=== PATIENT | female | born 1960 | race Caucasian/White ===

== ENCOUNTER 2016-11-20 10:00 | Inpatient (IN) | payer BC ==
--- NOTE | 2016-12-18 14:23 | HP ---
Admitting History and Physical - Primary Care Physician PCP: Lawrence Luciano - Admission Chief Complaint: left breast cancer History of Present Illness: 56 yo female noted to have left breast asymmetric density in the superior lateral aspect of the left breast that partially effaced on diagnostic views. Left US was c/w 4mm mass at 12 6 cm FN which was not suspicious. MRI was recommended and an area of enhancement was noted at 2 ooclock. Patient underwent an MRI guided core bx which was positive for invasive lobular carcinoma ER/MA positive Her 2 negative. Patient also underwent MRI guided core bxs of left 12 oclock which was positive for atypia and right 9 oclock which was positive for intraductal papilloma. Patient is now presenting for bilateral mastectomy, left snbx, possible andx with lymphoscintogram and bilateral GEOFFREY reconstruction. History Source: Patient - Past Medical History Gastrointestinal: Yes: GERD - Past Surgical History Additional Past Surgical History: pilonidal cyst exc 1975 - Smoking History Smoking history: Former smoker (quit 1999) Have you smoked in the past 12 months: No - Alcohol/Substance Use Hx Alcohol Use: No Home Medications - Allergies Allergies/Adverse Reactions: Allergies Allergy/AdvReac Type Severity Reaction Status Date / Time No Known Allergies Allergy Verified 10/17/16 10:02 - Home Medications Home Medications (free text): pantoprazole Family Disease History - Family Disease History Family Disease History: CA: Sister (Breast ca 55 triple neg alive 60) Other Family History: maternal cousin-breast cancer Review of Systems - Review of Systems Constitutional: reports: No Symptoms Cardiovascular: reports: No Symptoms Respiratory: reports: No Symptoms Physical Examination Constitutional: Yes: Well Nourished Cardiovascular: Yes: WNL, Regular Rate and Rhythm Respiratory: Yes: WNL, Regular Breast(s): Yes: Other (bilateral breast without skin changes noted. No nipple discharge or retraction noted. No suspicious palpable masses or adenopathy noted bilaterally.) Problem List - Problems (1) Breast cancer, left Code(s): C50.912 - MALIGNANT NEOPLASM OF UNSPECIFIED SITE OF LEFT FEMALE BREAST Qualifiers: Breast location: upper outer quadrant of breast Patient sex: female (2) Atypical lobular hyperplasia of left breast Code(s): N60.92 - UNSPECIFIED BENIGN MAMMARY DYSPLASIA OF LEFT BREAST (3) Intraductal papilloma of right breast Code(s): D24.1 - BENIGN NEOPLASM OF RIGHT BREAST Assessment/Plan Bilateral mastectomy, with left lymphoscintogram, left snbx, possible axillary node dissection, bilateral GEOFFREY reconstruction
--- NOTE | 2016-12-24 09:03 | HP ---
History & Physical Update - History History: No Change - Physical Physical: No Change - Assessment Assessment: No Change - Plan Currently as noted:: Left mastectomy, sentinel node biospsy, possible axillary node dissection
[2016-12-28 12:07] VITALS: BMI 32.2
[2017-01-02] MEDS ORDERED: PROMETHAZINE HCL 25 MG/1 ML VIAL IVPB PRN (06:58)
[2017-01-02] MEDS ORDERED: ONDANSETRON 4 MG/2 ML VIAL IVPUSH PRN ×3 (06:58→15:49)
[2017-01-02] MEDS ORDERED: PROMETHAZINE HCL 25 MG/1 ML VIAL IVPUSH PRN (06:58)
[2017-01-02] MEDS ORDERED: LACTATED RINGERS SOLUTION 1,000 ML IV SCH (07:00)
[2017-01-02] MEDS ORDERED: HYDROmorphone *PCA* 10MG/50ML DISP.SYRIN PCA SCH (07:00)
[2017-01-02] MEDS ORDERED: ACETAMINOPHEN INJECTION 200 ML IVPB ONE (07:01)
[2017-01-02] MEDS ORDERED: LIDOCAINE HCL 1%, 10 MG/ML (20ML VIAL) ONE (07:03)
[2017-01-02] MEDS ORDERED: DESFLURANE GAS 240 ML BOTTLE IH ONE (07:03)
[2017-01-02] MEDS ORDERED: SCOPOLAMINE HYDROBROMIDE 1 PATCH PATCH.TD72 ONE (07:03)
[2017-01-02] MEDS ORDERED: ceFAZolin SODIUM 1 GM VIAL ONE ×3 (07:13→17:48)
[2017-01-02] MEDS ORDERED: ePHEDrine SULFATE 50 MG/1 ML AMPULE ONE (07:13)
[2017-01-02] MEDS ORDERED: DEXAMETHASONE SOD PHOSPHATE 4 MG/1 ML VIAL ONE (07:13)
[2017-01-02] MEDS ORDERED: LIDOCAINE HCL/PF 2% SDV 5ML VIAL ONE (07:13)
[2017-01-02] MEDS ORDERED: PROPOFOL 20 ML ONE ×2 (07:13)
[2017-01-02] MEDS ORDERED: HYDROmorphone HCL/PF 1 MG/ML VIAL (FOR PYXIS CHARGING ONLY) ONE (07:13)
[2017-01-02] MEDS ORDERED: PHENYLEPHRINE HCL 10 MG/1 ML SINGLE DOSE VIAL ONE (07:13)
[2017-01-02] MEDS ORDERED: ROCURONIUM BROMIDE 50 MG/5 ML VIAL ONE ×4 (07:14→13:38)
[2017-01-02] MEDS ORDERED: MIDAZOLAM HCL 2 MG/2 ML SINGLE DOSE VIAL ONE ×2 (07:14)
[2017-01-02] MEDS ORDERED: SUCCINYLCHOLINE CHLORIDE 200 MG/10 ML VIAL ONE (07:14)
[2017-01-02] MEDS ORDERED: SODIUM CHLORIDE 0.9% P/F 10 ML VIAL IJ ONE ×2 (07:17→07:19)
[2017-01-02] MEDS ORDERED: ISOSULFAN BLUE 10 MG/ML VIAL SQ ONE (07:18)
[2017-01-02] MEDS ORDERED: HEPARIN NA (PORCINE) 5,000 UNITS/ML 1ML VIAL ONE (07:18)
[2017-01-02] MEDS ORDERED: LIDOCAINE HCL 4% PRESERVE-FREE 5 ML AMP ONE (07:18)
[2017-01-02] MEDS ORDERED: ceFAZolin SODIUM 1 GM VIAL IVPB ONE ×2 (08:37→16:55)
[2017-01-02] MEDS ORDERED: LIDOCAINE 1%/EPI 1:100000 (50 ML MULTI DOSE VIAL) ONE ×2 (08:38→08:42)
[2017-01-02] MEDS ORDERED: BUPIVACAINE LIPOSOME/PF (EXPAREL) 266 MG/20 ML VIAL NR ONE (08:45)
[2017-01-02] MEDS ORDERED: HEPARIN NA (PORCINE) 5,000 UNITS/ML 1ML VIAL SQ ONE (09:04)
[2017-01-02] MEDS ORDERED: LIDOCAINE 1%/EPI 1:100000 (50 ML MULTI DOSE VIAL) INF ONE (09:15)
[2017-01-02] MEDS ORDERED: GLYCOPYRROLATE 0.2 MG/1 ML VIAL ONE ×2 (10:39→13:41)
[2017-01-02] MEDS ORDERED: NEOSTIGMINE METHYLSULFATE 0.5 MG/ML - 10 ML MDV ONE (13:38)
[2017-01-02] MEDS ORDERED: LIDOCAINE HCL 4% PRESERVE-FREE 5 ML AMP NR ONE (14:18)
[2017-01-02] MEDS ORDERED: METOCLOPRAMIDE HCL INJECTION 10 MG/2 ML VIAL IVPB PRN (15:49)
[2017-01-02] MEDS ORDERED: ZOLPIDEM TARTRATE 5 MG TABLET PO PRN (15:49)
[2017-01-02] MEDS ORDERED: PROCHLORPERAZINE MALEATE 25 MG SUPP.RECT PR PRN (15:49)
[2017-01-02] MEDS ORDERED: D5-1/2NS+10 MEQ KCL - 1,000 ML IV SCH (16:00)
--- NOTE | 2017-01-02 16:06 | OPR ---
DATE OF OPERATION: 01/02/17 ATTENDING SURGEON: Fausto Fernandes MD CO-SURGEON: Cesario Ramos MD MINIATURE MODEL MAKER: JIMMY Torres PREOPERATIVE DIAGNOSIS: left breast cancer POSTOPERATIVE DIAGNOSIS: same PROCEDURE PERFORMED: 1. Left breast reconstruction with GEOFFREY (deep inferior epigastric perforators) flap. 2. Left rib resection. 3. Bilateral ligation of SIEV (superficial inferior epigastric vein). 4. Left intercostal nerve block for postoperative pain relief. 5. Bilateral transversus abdominis plane block for postoperative pain relief. COMPLICATIONS: None. ESTIMATED BLOOD LOSS: 300 mL DESCRIPTION OF PROCEDURE: The patient was brought to the OR in conjunction with Mustapha , the breast surgeon. Please see her operative note for details of her portion of the procedure. A Left mastectomy and a left sentinel node dissection was performed by Mustapha . Simultaneously , Dr. Fernandes and Dr. Ramos initiated the breast reconstruction at the abdomen. At the abdomen the previously marked ellipse of tissue from just above the umbilicus down to the pubic hairline was incised using a 15 blade scalpel. Dissection was carried down through the subcutaneous tissues using electrocautery, beveling away from the flap in order to increase the volume of the flap. At the right side, 6 cm off the midline, the superficial inferior epigastric artery and vein were identified. They were meticulously freed of all surrounding tissue, and they were traced down to their origin in the groin where they were ligated and divided and kept in continuity with the flap in case they were needed later in the flap for additional inflow or outflow to the flap. At the left side, 6 cm off the midline the left superficial inferior epigastric artery and vein were identified. Using microsurgical technique, they were meticulously dissected down to their origin in the groin where they were ligated and divided. They were kept in continuity with the left GEOFFREY flap in case they were needed later in the case for additional inflow or outflow to the flap. Simultaneously, at the left chest, exposure of the internal mammary artery and vein was performed. The mastectomy pocket was thoroughly irrigated, all points of bleeding were stopped with electrocautery. The pectoralis major muscle was then divided in line with its longitudinal fibers overlying the third rib. Gelpi retractors were placed for exposure. The third rib was scored using electrocautery, and then, the perichondrium surrounding the cartilaginous portion of the third rib was elevated using a periosteal elevator. Then, 2 cm of cartilaginous portion of the rib were removed using a rongeur, and under loupe magnification, the posterior perichondrium was elevated using microsurgical technique and bipolar cautery. Meticulous dissection was performed, and the internal mammary artery and vein were identified. The internal mammary artery and vein were freed of all surrounding tissue for a total length of 2 cm in order to allow microsurgical anastomoses. At the left abdomen, the left GEOFFREY flap was elevated in a lateral to medial direction using electrocautery until the lateral edge of the rectus abdominis muscle was encountered. Then, dissection continued using bipolar cautery in a meticulous fashion using loupe magnification, and the two dominant perforators identified on the preoperative MRA were encountered and preserved. They were circumferentially freed. An incision was made in the anterior rectus fascia in a superior and inferior direction. A small cuff of fascia was kept adherent to the perforators, approximately 1 cm in size. The perforators were followed down into the rectus muscle freeing all small branches as necessary. The rectus muscle was atraumatically split using Gelpi retractors, and the perforators were traced down to the left deep inferior epigastric artery pedicle. The pedicle was then traced down to its origin in the groin, clipping and dividing all small branches as necessary. At the groin, there was noted to be one large artery and two large venae comitantes. These were clipped with the medium automatic clip youth services specialist and divided, and the flap was weighed and noted to weigh approximately 870 gm. The left GEOFFREY flap was rotated 0 degrees. It was placed at the left chest and temporarily secured in position using 2-0 Vicryl sutures. The pedicle of the flap was placed in alignment with the internal mammary artery and vein. The operating microscope was brought into position. Under the operating microscope, attention was first paid to the venous anastomosis. The internal mammary vein had a clip applied distally and a single green clamp applied Proximally and distally. It was then divided using straight microscissors. The lumen was measured, and noted to be 2.5 mm. The pedicle vein was measured and noted to be 2.5 mm. A coupling device was loaded with a 2.5 -mm booking manager. It was lowered into the operative field under the operating microscope. The cut end of the pedicle vein was brought up and through the booking manager, everted over the coupling spike, secured in position using the J-Hole. The lumen was irrigated with heparinized saline solution, and it was noted to be in good potion and free of all debris. The booking manager was lowered adjacent to the internal mammary vein antegrade portion, the cut end of which was brought up and through the coupling device, everted over the coupling spikes, secured in position using the J-Hole, irrigated with heparinized saline solution, noted to be free of debris and in good position. The booking manager was closed, creating a secured couple anastomosis. The single green clamp was removed, and there was noted to be excellent flow across the venous anastomosis. Attention was then paid to the retrograde vein. The veins were measured and a 2.5 mm booking manager was selected. The second vein of the pedicle was then brought up and through a 2.5 mm booking manager. It was everted over the coupling spikes. It was secured in position using the J-Hole. The booking manager was then lowered adjacent to the retrograde internal mammary vein, the cut end of which was brought up and through the coupling device, everted over the coupling spikes, and secured in position using the J-Hole. The lumens were irrigated, noted to be free of debris and in good position. The booking manager was closed, and a secured couple anastomosis was created. The single green clamp was removed, and there was noted to be excellent flow across the anastomosis. Attention was then paid to the arterial anastomosis. The internal mammary artery had a medium clip applied distally, a single green clamp applied proximally. It was then divided using straight microscissors. The lumen was irrigated and noted to be free of debris and healthy in appearance. The pedicle artery was placed in alignment with the internal mammary artery, and a hand-sewn anastomosis was performed using an 8-0 nylon suture in an interrupted fashion. After completion of the hand-sewn anastomosis, the single green clamp was removed, and there was noted to be excellent strong pulsatile flow across the arterial anastomosis and a bounding pedicle. The pedicle was interrogated using the hand-held Doppler. There was noted to be strong, healthy pulsatile flow. For postoperative monitoring, the decision was made to place an implantable Doppler. A small window was created around the pedicle artery using the Bartlett dissector. The DeepField implantable Doppler cuff was passed around this and secured in position using MicroClips. The Doppler was hooked to the Doppler box, and it was noted to have a strong pulsatile signal. This was monitored throughout the entirety of the rest of the case. The operating microscope was then removed from the field. The flap was gently placed within the mastectomy cavity. The skin incisions were temporarily closed using skin staplers, and there was noted to be excellent shape and symmetry between the left and right breasts. Attention was then paid to closure of the left breast. The left GEOFFREY flaps were appropriately shaped, recreating a beautiful natural lateral sweep to the breasts and a sharp inframammary fold. The skin paddle of the flaps was marked to sit at the inframammary fold. This was preserved. The rest of the skin along the flaps was deepithelialized using facelift scissors. The flaps were then inset in the appropriate position, and skin incisions were closed in multiple layers with 3-0 PDS as the deep layer and 4-0 Monocryl as the final running subcuticular closure. At the left , prior to closure, an intercostalnerve block was performed using dilute exparel for Postoperative pain relief. Prior to closing the incisions, a No. 19 Lico drain was placed on the left and right side and brought out through a small separate stab wound incision. Attention was then paid to closure of the abdomen. Once good flow was established in the anastamosis, the right side of the abdomen was removed in prepartion for closure. The anterior rectus fascia including both the anterior layer and posterior layer of anterior rectus fascia was reapproximated using 0 PDS sutures in a figure-of-8 fashion with one suture placed every centimeter. After reapproximating the fascia, this was then overrun with a 0 V-Loc PDS suture in multiple layers in order to plicate and strengthen the closure. In the epigastric area, there was noted to be a small amount of bulging and a central plication was performed using a 0 V-Loc suture in a running fashion. The patient had an excellent shape to the abdomen after closure of the fascia, and the skin and subcutaneous flap was advanced in the inferior direction. A low transverse incision was then closed in multiple layers with 0 PDS as the first layer and 3-0 V-Loc as the final running subcuticular closure. The umbilicus was brought up to and out through an inverted V-shaped incision and inset using 4-0 Monocryl. At the abdomen prior to closure, a transversus abdominis plane block was performed at the left and right side using 0.25% Marcaine, 15 mL of Marcaine was introduced through multiple small injections in the transversus abdominis plane on the left and right side in order to provide postoperative pain relief; 15 mL of Marcaine was used on the left side, and 15 mL of Marcaine was used on the right side. Also, at the abdomen, a left and right 19 lico abdominal drain was placed prior to closure. After closure of the incisions, sterile dressings were applied of 0.5-inch Steri-Strips to the incisions. The drains were placed to bulb suction,and the patient was awakened from anesthesia in stable condition. She tolerated the procedure well and there were no complications.
[2017-01-02] MEDS ORDERED: HYDROmorphone *PCA* 10MG/50ML DISP.SYRIN PCA ONE (16:09)
--- NOTE | 2017-01-02 16:36 | CONSULT ---
Consultation: Specialty: Critical Care REQUESTING PROVIDER: Fausto Fernandes CONSULT REQUEST: We have been asked to medically evaluate this patient for Intensive Care HISTORY OF PRESENT ILLNESS: 56 yo F with h/o invasive lobular carcinoma ER+ CO+ HER2- at L 2 o'oclock and intraductal papilloma at L left 12 o'oclock. Patient is now s/p L total mastectomy, left breast reconstruction with GEOFFREY flap and left rib resection. Post-op day 0. Patient denies fever, chills, pain, shortness of breath, n/v. Past Medical History Gastrointestinal GERD Past Surgical History Mastectomy 01/02 at [facility] Family History CA: Sister (Breast ca 55 triple neg alive 60) maternal cousin-breast cancer Social History Smoking history Former smoker Have you smoked in the past 12 No months Hx Alcohol Use No Allergies Allergy/AdvReac Type Severity Reaction Status Date / Time No Known Allergies Allergy Verified 01/02/17 06:33 Home Medications Medication Instructions Recorded Enalapril Maleate [Vasotec -] 2.5 mg PO DAILY 12/28/16 REVIEW OF SYSTEMS: CONSTITUTIONAL: Absent: fever, chills, diaphoresis, generalized weakness, malaise, loss of appetite, weight change HEENT: Absent: rhinorrhea, nasal congestion, throat pain, throat swelling, difficulty swallowing, mouth swelling, ear pain, eye pain, visual changes CARDIOVASCULAR: Absent: chest pain, syncope, palpitations, irregular heart rate, lightheadedness , peripheral edema RESPIRATORY: Absent: cough, shortness of breath, dyspnea with exertion, orthopnea, wheezing, stridor, hemoptysis GASTROINTESTINAL: Absent: abdominal pain, abdominal distension, nausea, vomiting, diarrhea, constipation, melena, hematochezia GENITOURINARY: Absent: dysuria, frequency, urgency, hesitancy, hematuria, flank pain, genital pain MUSCULOSKELETAL: Absent: myalgia, arthralgia, joint swelling, back pain, neck pain SKIN: Absent: rash, itching, pallor HEMATOLOGIC/IMMUNOLOGIC: Absent: easy bleeding, easy bruising, lymphadenopathy, frequent infections ENDOCRINE: Absent: unexplained weight gain, unexplained weight loss, heat intolerance, cold intolerance NEUROLOGIC: Absent: headache, focal weakness or paresthesias, dizziness, unsteady gait, seizure, mental status changes, bladder or bowel incontinence PSYCHIATRIC: Absent: anxiety, depression, suicidal or homicidal ideation, hallucinations. PHYSICAL EXAMINATION Last Vital Signs Temp Pulse Resp BP Pulse Ox 98.3 F 83 20 152/96 97 01/02/17 06:29 01/02/17 06:29 01/02/17 06:29 01/02/17 06:29 01/02/17 06:29 GENERAL: AAO x 3, in no acute distress LUNGS: CTAB HEART: tachycardic, normal S1 and S2 without murmur, rub or gallop. ABDOMEN: rachel hugger blanket in place, surgical dressing covered, audible doppler LOWER EXTREMITIES: SCDs in place : metcalf with no urine Laboratory Results - last 24 hr 01/02/17 08:00 Blood Type O POSITIVE Antibody Screen Negative ASSESSMENT/PLAN: 56 yo F with h/o invasive lobular carcinoma and intraductal papilloma s/p L total mastectomy. L Mastectomy with GEOFFREY reconstruction and rib resection - Post-op day #0 - Post-op prophylatic abx: Cefazolin Q8H - Pain control: L intercostal and b/l transversus abdominis plane nerve block with dilaudid HOUSING ASSISTANT PROPERTY MANAGER - Post-op nausea control: Reglan, Zofran, compazine PRN - Dispo: OOB and incentive spirometer FEN - D5+1/2NS+10meq KCl @ 150ml/hr - Monitor K+ and Na+ - NPO Prophylaxis - DVT: heparin 5000 unit SQ - GI: not indicated Braxton Li, ICU Resident PGY-2 Pager: [phone] Visit type - Emergency Visit Emergency Visit: No - New Patient This patient is new to me today: Yes Date on this admission: 01/02/17 - Critical Care Critical Care patient: Yes Total Critical Care Time (in minutes): 30 Critical Care Statement: The care of this patient involved high complexity decision making to prevent further life threatening deterioration of the patient 's condition and/or to evalute & treat vital organ system(s) failure or risk of failure.
--- NOTE | 2017-01-02 18:07 | PN ---
Progress Note (short form) - Note Progress Note: Post op check : Flap 100% viable, pink , warm good pink color, good audible doppler signal Plan FORESTRY FIRE AIDE, bedrest overnight with standard flap monitoring, NPO until AM
--- NOTE | 2017-01-02 18:45 | SURG ---
Surgery Natural Remedy Consultant Note Natural Remedy Consultant: Barry Puri PA-C Date of Service: 01/02/17 Diagnosis: Left breast cancer Procedure: Left breast reconstruction with GEOFFREY (deep inferior epigastric perforators) flap. I was present for the entirety of the operative procedure. For further detail, please refer to operative report. Visit type - Case Type Case Type: Scheduled Admission - New patient This patient is new to me today: Yes Date on this admission: 01/02/17
[2017-01-02] MEDS: CEFAZOLIN (PRE-DOCKED) 50 ML IVPB SCH (20:28)
--- NOTE | 2017-01-02 20:57 | CONSULT ---
Consult - text type - Consultation Consultation Note: PULM/CCM Seen and examined in ICU CC: ICU observation o/n POD #0 after Left breast reconstruction with GEOFFREY (deep inferior epigastric perforators) flap, Left rib resection, Bilateral ligation of SIEV (superficial inferior epigastric vein) with Left intercostal nerve and Bilateral transversus abdominis plane block for postoperative pain relief HPI: Briefly Ms Magdaleno is a 56 y/o woman dx in 09/2016 with invasive ductal carcinoma now in ICU after L GEOFFREY with Dr Fernandes. Surgery was uneventful and pt come to ICU from PACU hemodynamically stable, extubated, with pain controlled , good audible doppler of flap tissue and minimal output from 3 indwellin drains . Past Medical History Gastrointestinal GERD Past Surgical History Mastectomy 01/02 at [facility] Family History CA: Sister (Breast ca 55 triple neg alive 60) maternal cousin-breast cancer Social History Smoking history Former smoker Have you smoked in the past 12 No months Hx Alcohol Use No Allergies Allergy/AdvReac Type Severity Reaction Status Date / Time No Known Allergies Allergy Verified 01/02/17 06:33 Home Medications Medication Instructions Recorded Enalapril Maleate [Vasotec -] 2.5 mg PO DAILY 12/28/16 REVIEW OF SYSTEMS: CONSTITUTIONAL: Absent: fever, chills, diaphoresis, generalized weakness, malaise, loss of appetite, weight change HEENT: Absent: rhinorrhea, nasal congestion, throat pain, throat swelling, difficulty swallowing, mouth swelling, ear pain, eye pain, visual changes CARDIOVASCULAR: Absent: chest pain, syncope, palpitations, irregular heart rate, lightheadedness , peripheral edema RESPIRATORY: Absent: cough, shortness of breath, dyspnea with exertion, orthopnea, wheezing, stridor, hemoptysis GASTROINTESTINAL: Absent: abdominal pain, abdominal distension, nausea, vomiting, diarrhea, constipation, melena, hematochezia GENITOURINARY: Absent: dysuria, frequency, urgency, hesitancy, hematuria, flank pain, genital pain MUSCULOSKELETAL: Absent: myalgia, arthralgia, joint swelling, back pain, neck pain SKIN: Absent: rash, itching, pallor HEMATOLOGIC/IMMUNOLOGIC: Absent: easy bleeding, easy bruising, lymphadenopathy, frequent infections ENDOCRINE: Absent: unexplained weight gain, unexplained weight loss, heat intolerance, cold intolerance NEUROLOGIC: Absent: headache, focal weakness or paresthesias, dizziness, unsteady gait, seizure, mental status changes, bladder or bowel incontinence PSYCHIATRIC: Absent: anxiety, depression, suicidal or homicidal ideation, hallucinations. GENERAL: resting comfortably, no distress LUNGS: clear anterior, no wheezes HEART: regular, tachy, no m/r/g appreciated ABDOMEN: rachel hugger blanket in place, surgical dressing covered, drain x 3 with minimal sero-sang output, audible doppler LOWER EXTREMITIES: no edema : metcalf Neuro: non-focal, intact Vital Signs Temp 98.4 F 01/02/17 20:00 Pulse 98 H 01/02/17 20:00 Resp 18 01/02/17 20:00 BP 121/72 01/02/17 20:00 Pulse Ox 97 01/02/17 20:00 Intake & Output 01/01/17 01/02/17 01/02/17 23:59 11:59 23:59 Intake Total 4600 700 Output Total 1070 731 Balance 3530 -31 Intake: IV 4600 700 Output: Drainage 131 #1 Left Breast 45 #2 Left Lower Abdomen 33 #3 Right Lower Abdomen 25 Urine 870 600 Estimated Blood Loss 200 ASSESSMENT/PLAN: 56 yo F with h/o invasive lobular carcinoma and intraductal papilloma s/p L total mastectomy and GEOFFREY reconstruction - Pain control: L intercostal and b/l transversus abdominis plane nerve block with dilaudid THREAT ANALYST, add clinician bolus as needed - nausea control: Reglan, Zofran, compazine PRN - Flap monitor/doppler as per Fernandes protocol - Dispo: OOB and incentive spirometer - gentle hydration D5+1/2NS+10meq KCl @ 150ml/hr - follow electrolytes - NPO until tomorrow, advance as tolerated - DVT prophy heparin 5000 unit SQ - GI: not indicated Dispo to med surg tomorrow if stable and tissue monitoring complete Serg Salas ACNP [id number]
[2017-01-03] MEDS: CEFAZOLIN (PRE-DOCKED) 50 ML IVPB SCH ×3 (02:13→17:07)
[2017-01-03] MEDS ORDERED: HYDROmorphone *PCA* 10MG/50ML DISP.SYRIN PCA ONE (04:00)
[2017-01-03] MEDS: HYDROmorphone *PCA* 10MG/50ML DISP.SYRIN PCA SCH (05:30)
[2017-01-03] MEDS ORDERED: SODIUM CHLORIDE 1,000 ML IV STA (06:11)
--- NOTE | 2017-01-03 06:23 | PN ---
Progress Note (short form) - Note Progress Note: POD 1 post left GEOFFREY flap Flap pink, soft, warm with good arterial flow signal GEORGETTE's serosanguinous and functioning well VSS AF Plan today for OOB, ambulate, ASA, SQ heparin, reg diet, DC metcalf and rachel cassidyer. Transfer to floor after lunch if all is well.
[2017-01-03] MEDS ORDERED: ZOLPIDEM TARTRATE 5 MG TABLET PO PRN (06:30)
[2017-01-03] MEDS ORDERED: PROCHLORPERAZINE MALEATE 25 MG SUPP.RECT PR PRN (06:30)
[2017-01-03] MEDS ORDERED: ONDANSETRON 4 MG/2 ML VIAL IVPUSH PRN (06:30)
[2017-01-03] MEDS ORDERED: D5-1/2NS+10 MEQ KCL - 1,000 ML IV SCH ×3 (06:30→18:36)
[2017-01-03] MEDS ORDERED: ASPIRIN 325 MG TABLET PO SCH (06:30)
[2017-01-03] MEDS ORDERED: METOCLOPRAMIDE HCL INJECTION 10 MG/2 ML VIAL IVPB PRN (06:30)
[2017-01-03] MEDS ORDERED: PROMETHAZINE HCL 25 MG/1 ML VIAL IVPB PRN (06:30)
[2017-01-03] MEDS ORDERED: HEPARIN NA (PORCINE) 5,000 UNITS/ML 1ML VIAL SQ SCH ×2 (08:00)
--- NOTE | 2017-01-03 08:29 | PN ---
Progress Note, Physician Chief Complaint: S/P mastectomy with GEOFFREY reconstruction POD#1 History of Present Illness: Patient seen at the bedside and is comfortable with good pain control. - Current Medication List Current Medications: Active Medications Aspirin (Asa -) 325 mg PO DAILY [facility] Enalapril Maleate (Vasotec -) 2.5 mg PO DAILY [facility] Heparin Sodium (Porcine) (Heparin -) 5,000 unit SQ BID@0800,2000 [facility] Hydromorphone HCl (Dilaudid Labor Standards Director -) 0 mg COMMUNICABLE DISEASE SPECIALIST COMMUNICABLE DISEASE SPECIALIST [facility] PRN Reason: Protocol Stop: 01/09/17 06:58 Cefazolin Sodium (Ancef 1gm Ivpb (Pre-Docked)) 50 mls @ 100 mls/hr IVPB Q8H-IV [facility] Potassium Chloride/Dextrose/Sod Cl (D5-1/2ns+10 Meq Kcl -) 1,000 mls @ 150 mls/ hr IV ASDIR [facility] Metoclopramide HCl (Reglan Injection -) 10 mg IVPB Q6H PRN PRN Reason: NAUSEA AND/OR VOMITING Ondansetron HCl (Zofran Injection) 4 mg IVPUSH Q6H PRN PRN Reason: NAUSEA AND/OR VOMITING Prochlorperazine Maleate (Compazine Suppository -) 25 mg [place] Q12H PRN PRN Reason: NAUSEA AND/OR VOMITING Promethazine HCl (Phenergan Injection -) 12.5 mg IVPB Q6H PRN PRN Reason: NAUSEA AND/OR VOMITING Zolpidem Tartrate (Ambien -) 5 mg PO HS PRN PRN Reason: INSOMNIA Stop: 01/05/17 15:49 - Objective Vital Signs: Vital Signs Temperature 97.8 F 01/03/17 06:00 Pulse Rate 106 H 01/03/17 06:00 Respiratory Rate 20 01/03/17 06:00 Blood Pressure 121/46 01/03/17 06:00 O2 Sat by Pulse Oximetry (%) 97 01/02/17 21:00 Constitutional: Yes: Well Nourished, Calm Breast(s): Yes: Other (Flaps with good color. GEORGETTE with serosanginous discharge bilaterally. Steristrips intact without erythema or discharge) Problem List - Problems (1) Breast cancer, left Code(s): C50.912 - MALIGNANT NEOPLASM OF UNSPECIFIED SITE OF LEFT FEMALE BREAST Qualifiers: Breast location: upper outer quadrant of breast Patient sex: female (2) Atypical lobular hyperplasia of left breast Code(s): N60.92 - UNSPECIFIED BENIGN MAMMARY DYSPLASIA OF LEFT BREAST (3) Intraductal papilloma of right breast Code(s): D24.1 - BENIGN NEOPLASM OF RIGHT BREAST Assessment/Plan Plan: S/P left mastectomy with snbx and GEOFFREY POD#1 -continue IV axbx and pain meds -plan as per Dr. Fernandes.
[2017-01-03 08:46] LABS: BASOPHIL 0.2 % (0-2.0); MCH 28.1 pg (25.7-33.7); MCHC 33.4 g/dl (32.0-36.0); MEAN PLT VOLUME 6.7 fl (7.5-11.1); PLATELET COUNT 211 K/MM3 (134-434); RDW 14.1 % (11.6-15.6); WHITE BLOOD COUNT 12.3 K/mm3 (4.0-10.0)
[2017-01-03] MEDS: HEPARIN NA (PORCINE) 5,000 UNITS/ML 1ML VIAL SQ SCH ×2 (08:49→21:04)
[2017-01-03] MEDS ORDERED: PT OWN MED DRAWER 7, Y5N ONE (09:02)
[2017-01-03] MEDS: ENALAPRIL MALEATE 2.5 MG TABLET (FP) PO SCH (09:05)
[2017-01-03] MEDS: ASPIRIN 325 MG TABLET PO SCH (09:09)
[2017-01-03 09:14] LABS: ALBUMIN 2.4 g/dl (3.4-5.0); ANION GAP 7 (8-16); CO2 26 mmol/L (21-32); CREATININE 0.9 mg/dL (0.55-1.02); GLUCOSE,RANDOM 116 mg/dL (74-106); SGOT/AST 23 U/L (15-37); SGPT/ALT 14 U/L (12-78)
[2017-01-03 09:16] LABS: ALK PHOS 59 U/L (45-117); BILIRUBIN,TOTAL 0.5 mg/dL (0.2-1.0); TOT PROT 4.9 g/dl (6.4-8.2)
--- NOTE | 2017-01-03 09:35 | PN ---
Progress Note (short form) - Note Progress Note: Anesthesia POD#1 S/P Left Mastectomy & GEOFFREY Flap under GA and Dilaudid BLENDING TECHNICIAN VSS,Awake,no N/V. Pain is under control.Food is advanced. No complications to anesthesia seen. A/P Continue BLENDING TECHNICIAN for today. Nava Marion MD.
[2017-01-03] MEDS ORDERED: ENALAPRIL MALEATE 2.5 MG TABLET (FP) PO SCH (10:00)
[2017-01-03] MEDS ORDERED: BENZOCAINE/MENTH/CETYLPYRD CL 1 EACH LOZENGE MM PRN (10:50)
--- NOTE | 2017-01-03 11:27 | PN ---
Teaching Attending Note Name of Resident: Rah Treviño ATTENDING PHYSICIAN STATEMENT I saw and evaluated the patient. I reviewed the resident's note and discussed the case with the resident. I agree with the resident's findings and plan as documented. SUBJECTIVE: Pt seen and examined in the ICU. Pain controlled with BOAT ENGINE MECHANIC pump. No fevers or chills. Some throat discomfort. No shortness of breath or chest pain. OBJECTIVE: Last Vital Signs Temp Pulse Resp BP Pulse Ox 98.8 F 102 H 19 142/49 97 01/03/17 10:00 01/03/17 10:00 01/03/17 10:00 01/03/17 10:00 01/03/17 09:00 Intake & Output 12/31/16 01/01/17 01/02/17 01/03/17 23:59 23:59 23:59 23:59 Intake Total 5900 1100 Output Total 1821 885 Balance 4079 215 Gen: NAD at rest Heart: RRR Chest: +GEORGETTE drains with serosanguinous drainage Lung: decreased breath sounds at the bases Abd: soft, nontender Ext: no edema CBC, BMP 01/03/17 08:35 01/03/17 08:35 Active Medications Aspirin (Asa -) 325 mg PO DAILY [facility] Last Admin: 01/03/17 09:09 Dose: 325 mg Benzocaine/Menthol (Cepacol Lozenge -) 1 each MM PRN PRN PRN Reason: SORE THROAT Enalapril Maleate (Vasotec -) 2.5 mg PO DAILY [facility] Last Admin: 01/03/17 09:05 Dose: 2.5 mg Heparin Sodium (Porcine) (Heparin -) 5,000 unit SQ BID@0800,2000 [facility] Last Admin: 01/03/17 08:49 Dose: 5,000 unit Hydromorphone HCl (Dilaudid Napping Machine Operator -) 0 mg BOAT ENGINE MECHANIC BOAT ENGINE MECHANIC [facility] PRN Reason: Protocol Stop: 01/09/17 06:58 Cefazolin Sodium (Ancef 1gm Ivpb (Pre-Docked)) 50 mls @ 100 mls/hr IVPB Q8H-IV [facility] Last Admin: 01/03/17 09:04 Dose: 100 mls/hr Potassium Chloride/Dextrose/Sod Cl (D5-1/2ns+10 Meq Kcl -) 1,000 mls @ 150 mls/ hr IV ASDIR [facility] Last Admin: 01/03/17 08:30 Dose: 150 mls/hr Metoclopramide HCl (Reglan Injection -) 10 mg IVPB Q6H PRN PRN Reason: NAUSEA AND/OR VOMITING Ondansetron HCl (Zofran Injection) 4 mg IVPUSH Q6H PRN PRN Reason: NAUSEA AND/OR VOMITING Prochlorperazine Maleate (Compazine Suppository -) 25 mg LA Q12H PRN PRN Reason: NAUSEA AND/OR VOMITING Promethazine HCl (Phenergan Injection -) 12.5 mg IVPB Q6H PRN PRN Reason: NAUSEA AND/OR VOMITING Zolpidem Tartrate (Ambien -) 5 mg PO HS PRN PRN Reason: INSOMNIA Stop: 01/05/17 15:49 ASSESSMENT AND PLAN: Breast Ca s/p L Mastectomy and GEOFFREY reconstruction 01/02 HTN - flap monitoring - monitor GEORGETTE drain output - monitor H/H - pain control - incentive spirometry - PO as tolerated - DVT prophylaxis
[2017-01-03] MEDS ORDERED: guaiFENesin/CODEINE 10 ML UNIT-DOSE CUPS PO PRN ×2 (12:11→16:04)
[2017-01-03] MEDS ORDERED: ENALAPRILAT DIHYDRATE 2.5 MG/2 ML VIAL IVPB ONE (18:06)
[2017-01-03] MEDS ORDERED: LABETALOL HCL 5 MG/1 ML (100MG/20 ML VIAL) IVPUSH ONE ×2 (19:01→19:39)
[2017-01-03] MEDS ORDERED: LABETALOL HCL 5 MG/1 ML (100MG/20 ML VIAL) ONE (19:08)
[2017-01-03] MEDS: amLODIPine BESYLATE 5 MG TABLET (FP) PO SCH (20:10)
[2017-01-04] MEDS: CEFAZOLIN (PRE-DOCKED) 50 ML IVPB SCH ×3 (02:19→17:42)
[2017-01-04 06:27] LABS: MCH 27.7 pg (25.7-33.7); MEAN PLT VOLUME 7.3 fl (7.5-11.1); PLATELET COUNT 214 K/MM3 (134-434); RDW 14.2 % (11.6-15.6); WHITE BLOOD COUNT 12.6 K/mm3 (4.0-10.0)
[2017-01-04 07:12] LABS: ALBUMIN 2.6 g/dl (3.4-5.0); ANION GAP 8 (8-16); CALCIUM 7.5 mg/dL (8.5-10.1); CO2 29 mmol/L (21-32); CREATININE 0.6 mg/dL (0.55-1.02); GLUCOSE,RANDOM 119 mg/dL (74-106); SGPT/ALT 17 U/L (12-78)
[2017-01-04 07:13] LABS: ALK PHOS 63 U/L (45-117); BILIRUBIN,TOTAL 0.4 mg/dL (0.2-1.0); TOT PROT 5.2 g/dl (6.4-8.2)
[2017-01-04 07:31] LABS: SGOT/AST 41 U/L (15-37)
[2017-01-04] MEDS: HEPARIN NA (PORCINE) 5,000 UNITS/ML 1ML VIAL SQ SCH ×2 (08:11→20:38)
--- NOTE | 2017-01-04 08:19 | PN ---
Progress Note (short form) - Note Progress Note: POD 2 Flap viable: good flow signal and color OOB, ambulating GEORGETTE's all thin serous fluid Urinating well in toilet Hypertensive overnight, appreciate medicine management Plan: medicine to continue to treat hypertension in anticipation for d/c home tomorrow Continue flap monitoring per protocol Hep lock IV Transfer to floor once bed available and hypertension treated. No dressings, no caffeine, no vasospastic agents.
--- NOTE | 2017-01-04 09:09 | PN ---
Progress Note, Physician Chief Complaint: S/P mastectomy with GEOFFREY flap reconstruction POD#2 History of Present Illness: Patient was seen today and was noted to be on a chair. She has been voiding well after metcalf was discontinued. Otherwise she reports good pain control. - Current Medication List Current Medications: Active Medications Amlodipine Besylate (Norvasc -) 5 mg PO DAILY [facility] Last Admin: 01/03/17 20:10 Dose: 5 mg Aspirin (Asa -) 325 mg PO DAILY [facility] Last Admin: 01/03/17 09:09 Dose: 325 mg Benzocaine/Menthol (Cepacol Lozenge -) 1 each MM PRN PRN PRN Reason: SORE THROAT Last Admin: 01/03/17 11:38 Dose: 1 each Enalapril Maleate (Vasotec -) 2.5 mg PO DAILY [facility] Last Admin: 01/03/17 09:05 Dose: 2.5 mg Guaifenesin/Codeine Phosphate (Robitussin Ac -) 10 ml PO Q4H PRN PRN Reason: COUGH Last Admin: 01/03/17 17:49 Dose: 10 ml Heparin Sodium (Porcine) (Heparin -) 5,000 unit SQ BID@0800,2000 [facility] Last Admin: 01/04/17 08:11 Dose: 5,000 unit Hydromorphone HCl (Dilaudid Electronics Department Manager -) 0 mg SUPERVISOR CAB SUPERVISOR CAB [facility] PRN Reason: Protocol Stop: 01/09/17 06:58 Last Admin: 01/03/17 05:30 Dose: 10 mg Cefazolin Sodium (Ancef 1gm Ivpb (Pre-Docked)) 50 mls @ 100 mls/hr IVPB Q8H-IV [facility] Last Admin: 01/04/17 02:19 Dose: 100 mls/hr Metoclopramide HCl (Reglan Injection -) 10 mg IVPB Q6H PRN PRN Reason: NAUSEA AND/OR VOMITING Ondansetron HCl (Zofran Injection) 4 mg IVPUSH Q6H PRN PRN Reason: NAUSEA AND/OR VOMITING Prochlorperazine Maleate (Compazine Suppository -) 25 mg MS Q12H PRN PRN Reason: NAUSEA AND/OR VOMITING Promethazine HCl (Phenergan Injection -) 12.5 mg IVPB Q6H PRN PRN Reason: NAUSEA AND/OR VOMITING Zolpidem Tartrate (Ambien -) 5 mg PO HS PRN PRN Reason: INSOMNIA Stop: 01/05/17 15:49 - Objective Vital Signs: Vital Signs Temperature 99.0 F 01/04/17 05:52 Pulse Rate 80 01/04/17 05:52 Respiratory Rate 20 01/04/17 05:52 Blood Pressure 158/66 01/04/17 05:52 O2 Sat by Pulse Oximetry (%) 97 01/03/17 20:29 Constitutional: Yes: Well Nourished, Calm Breast(s): Yes: Other (Flap with good color and without swelling. Abdominal wounds clean without erythema or purulent discharge. JPs with serosanginous discharge.) Labs: CBC, BMP 01/04/17 05:15 01/04/17 05:15 Problem List - Problems (1) Breast cancer, left Code(s): C50.912 - MALIGNANT NEOPLASM OF UNSPECIFIED SITE OF LEFT FEMALE BREAST Qualifiers: Breast location: upper outer quadrant of breast Patient sex: female (2) Atypical lobular hyperplasia of left breast Code(s): N60.92 - UNSPECIFIED BENIGN MAMMARY DYSPLASIA OF LEFT BREAST (3) Intraductal papilloma of right breast Code(s): D24.1 - BENIGN NEOPLASM OF RIGHT BREAST Assessment/Plan Plan HTN to be managed by medicine. Continue current tx regime as per Dr Fernandes Ornament Setter to see patient for VNS at home Possible discharge tomorrow.
[2017-01-04] MEDS: ASPIRIN 325 MG TABLET PO SCH (09:26)
[2017-01-04] MEDS: amLODIPine BESYLATE 5 MG TABLET (FP) PO SCH (09:26)
[2017-01-04] MEDS ORDERED: PT OWN MED DRAWER 7, Y5N ONE (09:29)
[2017-01-04] MEDS: ENALAPRIL MALEATE 2.5 MG TABLET (FP) PO SCH (09:30)
[2017-01-04] MEDS ORDERED: ENALAPRIL MALEATE 2.5 MG TABLET (FP) PO ONE (11:06)
[2017-01-04] MEDS ORDERED: ENALAPRIL MALEATE 5 MG TABLET (FP) PO SCH (11:07)
--- NOTE | 2017-01-04 11:35 | PN ---
Progress Note (short form) - Note Progress Note: Patient seen and examined in the ICU. Awake and alert. Pain is controlled on NIGHT SHIFT. No CP or SOB. Noted increase in BP. Was on low dose ACEI as an outpatient. No N/V. Intake & Output 01/01/17 01/02/17 01/03/17 01/04/17 23:59 23:59 23:59 23:59 Intake Total 5900 3770 660 Output Total 1821 1515 1055 Balance 4079 2255 -395 Last Vital Signs Temp Pulse Resp BP Pulse Ox 98.8 F 87 23 166/79 97 01/04/17 08:00 01/04/17 08:00 01/04/17 08:00 01/04/17 08:00 01/04/17 08:00 Active Medications Amlodipine Besylate (Norvasc -) 5 mg PO DAILY [facility] Last Admin: 01/04/17 09:26 Dose: 5 mg Aspirin (Asa -) 325 mg PO DAILY [facility] Last Admin: 01/04/17 09:26 Dose: 325 mg Benzocaine/Menthol (Cepacol Lozenge -) 1 each MM PRN PRN PRN Reason: SORE THROAT Last Admin: 01/03/17 11:38 Dose: 1 each Enalapril Maleate (Vasotec -) 5 mg PO DAILY [facility] Guaifenesin/Codeine Phosphate (Robitussin Ac -) 10 ml PO Q4H PRN PRN Reason: COUGH Last Admin: 01/03/17 17:49 Dose: 10 ml Heparin Sodium (Porcine) (Heparin -) 5,000 unit SQ BID@0800,2000 [facility] Last Admin: 01/04/17 08:11 Dose: 5,000 unit Hydromorphone HCl (Dilaudid Critical Care Nurse Specialist -) 0 mg NIGHT SHIFT NIGHT SHIFT [facility] PRN Reason: Protocol Stop: 01/09/17 06:58 Last Admin: 01/03/17 05:30 Dose: 10 mg Cefazolin Sodium (Ancef 1gm Ivpb (Pre-Docked)) 50 mls @ 100 mls/hr IVPB Q8H-IV [facility] Last Admin: 01/04/17 09:26 Dose: 100 mls/hr Metoclopramide HCl (Reglan Injection -) 10 mg IVPB Q6H PRN PRN Reason: NAUSEA AND/OR VOMITING Ondansetron HCl (Zofran Injection) 4 mg IVPUSH Q6H PRN PRN Reason: NAUSEA AND/OR VOMITING Prochlorperazine Maleate (Compazine Suppository -) 25 mg DC Q12H PRN PRN Reason: NAUSEA AND/OR VOMITING Promethazine HCl (Phenergan Injection -) 12.5 mg IVPB Q6H PRN PRN Reason: NAUSEA AND/OR VOMITING Zolpidem Tartrate (Ambien -) 5 mg PO HS PRN PRN Reason: INSOMNIA Stop: 01/05/17 15:49 Gen: NAD at rest Heart: RRR Chest: +GEORGETTE drains with serosanguinous drainage Lung: decreased breath sounds at the bases Abd: soft, nontender Ext: no edema Laboratory Results - last 24 hr 01/04/17 01/04/17 05:15 05:15 WBC 12.6 H RBC 3.20 L Hgb 8.9 L Hct 26.9 L MCV 84.0 MCH 27.7 MCHC 33.0 RDW 14.2 Plt Count 214 MPV 7.3 L Sodium 135 L Potassium 3.9 Chloride 98 Carbon Dioxide 29 Anion Gap 8 BUN 10 D Creatinine 0.6 D Creat Clearance w eGFR > 60 Random Glucose 119 H Calcium 7.5 L Total Bilirubin 0.4 AST 41 H D ALT 17 D Alkaline Phosphatase 63 Total Protein 5.2 L Albumin 2.6 L ASSESSMENT AND PLAN: Breast Ca s/p L Mastectomy and GEOFFREY reconstruction 01/02 HTN - flap monitoring - monitor GEORGETTE drain output - monitor H/H - pain control - incentive spirometry - PO as tolerated - DVT prophylaxis - Titrate BP Meds - Floor Dr Chow
--- NOTE | 2017-01-04 11:47 | PN ---
Progress Note (short form) - Note Progress Note: Post op day#2.Patient stable and has little pain for which she is on medication Dilaudid MEDICAL TERRITORY MANAGER was DC yesterday.No any anesthesia related problem.Patient DC from the anesthesia care.
[2017-01-04] MEDS ORDERED: amLODIPine BESYLATE 5 MG TABLET (FP) PO SCH ×2 (15:03→18:00)
[2017-01-04] MEDS ORDERED: amLODIPine BESYLATE 5 MG TABLET (FP) PO ONE (15:39)
--- NOTE | 2017-01-04 16:56 | PATH ---
Surgical Pathology Report Patient Name: SARINA ZAMORANO Med. Rec. #: [id number] /Age/Gender: 1960 (Age: 56) / F Account: [id number] Location: [facility] MED/SURG Taken: 01/02/2017 Received: 01/02/2017 Reported: 01/04/2017 Physicians: Bobby Sanchez Specimen(s) Received A: LEFT SENTINEL LYMPH NODE B: LEFT RETROAREOLAR BIOPSY C: LEFT BREAST D: ABDOMINAL SKIN AND TISSUE Clinical History Left breast cancer Intraoperative Consult Diagnosis A. Left sentinel lymph node, 4 touch preps and 4 frozen sections: four lymph nodes, no carcinoma identified (0/4). B. Left retroareolar biopsy, frozen section: Intraductal papilloma. No invasive carcinoma identified. Dr. Fajardo, 01/02/17. Final Diagnosis A. SENTINEL LYMPH NODE, LEFT AXILLA, BIOPSY: FOUR LYMPH NODES, NEGATIVE FOR METASTATIC CARCINOMA BY H&E AND AE1/AE3 KERATIN IMMUNOSTAIN (0/4). Comment: Immunostains for Ae1/Ae3 performed and interpreted on blocks A1-A4 at [facility]. B. LEFT RETROAREOLAR BIOPSY: FRAGMENTS OF INTRADUCTAL PAPILLOMA. NO INVASIVE OR IN SITU CARCINOMA IDENTIFIED C. BREAST, LEFT, MASTECTOMY: INVASIVE LOBULAR CARCINOMA, CLASSICAL TYPE (NUCLEAR GRADE 2). INVASIVE CARCINOMA FOCALITY AND SIZE: SINGLE FOCUS, 0.5 CM, UPPER OUTER QUADRANT, LOBULAR CARCINOMA IN SITU, CLASSICAL TYPE (NUCLEAR GRADE 1-2), WITH FOCAL ASSOCIATED MICROCALCIFICATIONS. PRIOR BIOPSY SITE CHANGES IDENTIFIED (x2). SURGICAL RESECTION MARGINS: WIDELY NEGATIVE FOR CARCINOMA; CLOSEST RESECTION MARGIN (ANTERIOR SOFT TISSUE) IS >1 CM AWAY FROM CARCINOMA. LYMPHOVASCULAR INVASION: NOT IDENTIFIED. PERINEURAL INVASION: NOT IDENTIFIED. SKELETAL MUSCLE: NOT INVOLVED BY CARCINOMA. SURROUNDING BREAST TISSUE: INTRADUCTAL PAPILLOMA, FIBROCYSTIC CHANGE WITH USUAL PAPILLARY DUCTAL HYPERPLASIA, COLUMNAR CELL CHANGE, CYSTIC APOCRINE METAPLASIA, DUCT DILATATION, CYST FORMATION AND STROMAL FIBROSIS AND FEW ASSOCIATED MICROCALCIFICATIONS. PATHOLOGIC STAGING: pT1a pN0(sn) (ALSO REFER TO CHECKLIST BELOW). RECEPTOR STATUS: REFER TO CHECKLIST BELOW. Comment: Immunohistochemical stain for e-cadherin performed and interpreted at [facility] on block C2 shows areas negative e-cadherin staining, supporting LCIS. D. ABDOMINAL SKIN AND TISSUE: BENIGN SKIN AND SUBCUTANEOUS FATTY TISSUE. Comments Breast Invasive Carcinoma: Surgical Pathology Cancer Case Summary Based on AJCC/UICC TNM, 7th edition Procedure _x_ Nipple sparing mastectomy Lymph Node Sampling _x_ [place] lymph nodes Specimen Laterality _x_ Left Tumor Size: Size of Largest Invasive Carcinoma Greatest dimension of largest focus of invasion over 1 mm: 0.5 cm (5 mm) Tumor Focality _x_ Single focus of invasive carcinoma Macroscopic and Microscopic Extent of Tumor Skin _x_ No skin present Nipple _x_ Not applicable (excisions less than total mastectomy) Skeletal Muscle _x_ Carcinoma does not invade skeletal muscle Ductal Carcinoma In Situ (DCIS) _x_ No DCIS is present Lobular Carcinoma In Situ (LCIS): _x_ Present, classical type Histologic Type of Invasive Carcinoma: _x_ Invasive lobular carcinoma Histologic Grade: ([place] Histologic Score) Tubular Differentiation _x_ Score 3 Nuclear Pleomorphism _x_ Score 2 Mitotic Rate _x_ Score 1 Overall Grade _x_ Score cannot be determined (lobular carcinoma) Margins _x_ Margins uninvolved by invasive carcinoma Distance from closest margin: >1.0 cm Specify margin: anterior soft tissue Lymph-Vascular Invasion _x_ Not identified Lymph Nodes Total number of lymph nodes examined (sentinel and nonsentinel): 4 Number of sentinel lymph nodes examined: 4 Number of lymph nodes with macrometastases ( > 2 mm): 0 Number of lymph nodes with micrometastases (>0.2 mm to 2 mm and/or >200cells): 0 Number of lymph nodes with isolated tumor cells (=0.2 mm and =200 cells): 0 Size of largest metastatic deposit (if present): n/a Extranodal Extension _x_ Not applicable Pathologic Staging (pTNM) Primary Tumor (Invasive Carcinoma): pT1a Regional Lymph Nodes (pN): pN0(sn) Distant Metastasis (pM): not applicable Biomarker Studies Results of ER, NC, Her2 and Ki67 studies will be reported separately in an addendum. Electronically Signed Jean Pierre Fajardo M.D. Addendum Reported: 01/08/2017 Addendum Diagnosis Results of Estrogen Receptor (ER) and Progesterone Receptor (NC) studies performed on block C3 at [facility] are as follows: ER (clone [id number] mouse monoclonal antibody by [employer]): 90% nuclear staining with strong intensity (Positive). NC (clone16 mouse monoclonal antibody by [employer]): ~60% nuclear staining with strong intensity (Positive). Results of Her2 (IHC) & Ki-67 studies performed on block C3 at [place], [place] ([id number]) are as follows: Her2 IHC (EP3 from [employer], formerly known as [id number], using [employer] Polymer Refine detection kit): 0 (Negative) Ki-67: ~10% (Low proliferative index) Positive and negative controls (internal if applicable) show appropriate results. Formalin fixation and cold ischemic times are within current ASCO/CAP recommendations for ER, NC and Her2 testing. Jean Pierre Fajardo M.D. Gross Description A. Received fresh, labeled "left sentinel lymph node" as the fragments of stovall-yellow adipose tissue with ranging from 1.8-2.5 cm greatest dimension. The specimens are bisected to reveal a one pink-stovall rubbery lymph nodes ranging from 0.8-1.9 cm in greatest dimension. Four touch preps are made, four frozen sections are performed. Frozen section residues are submitted in 4 cassettes. B. Received fresh, labeled "left retroareolar biopsy" are two fragments of stovall-pink this tissue 0.4 cm in greatest dimension each. Entirely submitted for frozen section. Frozen section residue is submitted in one cassette. C. Received in formalin, labeled "left breast" is a 590 gram, 21 x 17 x 3.5 cm left mastectomy specimen with a short suture marking the superior aspect and a long suture marking the lateral aspect of the specimen, per the surgeon. There is no skin or nipple present. The deep margin is inked black and the anterior soft tissue margin is inked blue. The specimen is serially sectioned from medial to lateral. Sectioning reveals a focal 1.0 cm hemorrhagic area with surrounding fibrous tissue in the upper outer quadrant consistent with a biopsy site. This area is 1.5 cm from the anterior soft tissue margin and 1.7 cm from the deep margin. Additional 0.5 cm hemorrhagic area is identified in the retroareolar area, suggestive of a biopsy site. Survey Research Center Director sections are submitted in 15 cassettes as follows: cassettes #1, 2:OUQ hemorrhagic site, cassettes #3,4,5: fibrous areas surrounding this hemorrhagic site, cassette #6: anterior soft tissue margin, cassette #7 deep margin, cassette #8, 9 retroareolar area, cassette #10 technology sales representative section from the UOQ, cassette #11-12 technology sales representative LOQ, cassette #13 technology sales representative UIQ, cassette #14 technology sales representative LIQ, cassette #15 additional sections of the anterior soft tissue and deep margins, cassettes #16-20: hemorrhagic retroareolar area. Time to formalin fixation: 55 minutes Total formalin fixation time: ~ 8h AF/01/02/2017 D. Received in formalin labelled "abdominal skin and tissue" is a 770 gram, 20 x 16 x up to 4 cm portion of unremarkable skin and subcutaneous adipose tissue. No focal lesions are identified. Survey Research [employer] Director section is submitted in one cassette. CONSUELO/01/03/2017 final/01/02/2017
[2017-01-04] MEDS ORDERED: ACETAMINOPHEN 325 MG TABLET (FP) PO PRN (19:08)
[2017-01-04] MEDS: HYDROmorphone *PCA* 10MG/50ML DISP.SYRIN PCA SCH (19:33)
[2017-01-04] MEDS ORDERED: morphine CARPU-JECT 4 MG/1 ML DISP.SYRIN IVPUSH PRN (19:40)
[2017-01-05] MEDS ORDERED: ceFAZolin SODIUM 1 GM VIAL ONE ×3 (01:26→18:48)
[2017-01-05] MEDS ORDERED: DEXTROSE 5%-WATER - 50 ML IVPB ONE ×3 (01:27→18:48)
[2017-01-05] MEDS: CEFAZOLIN 1 GM in DEXTROSE 5%-WATER - 50 ML IVPB SCH ×2 (01:40→10:42)
--- NOTE | 2017-01-05 06:49 | OP ---
DATE OF OPERATION: 01/02/2017 PREOPERATIVE DIAGNOSIS: Left breast cancer. POSTOPERATIVE DIAGNOSIS: Left breast cancer. PROCEDURE: Left nipple-sparing total mastectomy with sentinel node biopsy. ANESTHESIA: General intubated. ATTENDING SURGEON: Gregorio Luciano MD FOREIGN LANGUAGE TEACHER: Nadine Frazier ESTIMATED BLOOD LOSS: 200 mL. COMPLICATIONS: None. PROCEDURE: Patient was made aware of the risks and benefits of the procedure and consented. She was placed in the supine position after going to Nuclear Medicine where technetium lymphoscintigraphy was performed. After general anesthesia was induced, the patient was intubated. Under sterile conditions, 2.5 mL of 1% isosulfan blue were locally infiltrated into the peritumoral tissues. Thereafter, the operative site was prepped and draped in the usual sterile fashion. Waiting approximately 10 minutes with gentle manual compression, a curvilinear incision was made in the left axilla. Using blunt and sharp dissection, tissues were dissected down, revealing blue and hot lymph node. This was surgically excised and submitted to frozen section. The frozen section reported 4 lymph nodes without evidence of metastasis with the caveat that this was an invasive lobular cancer which may be difficult to assess ben metastasis on frozen section. Palpation of the rest of the axilla revealed nothing suspicious and interrogation with the Neoprobe showed the background radioactivity count was less than 10% of the original. The breast was then approached. An inframammary incision was then performed and using electrocautery incision was taken down to the chest wall. The breast tissue was taken off the chest wall and pectoralis muscle extending superior to the clavicle, medial to the sternum, and lateral to latissimus dorsi. Using cutting on the PEAK device, a skin flap was made superiorly to the nipple. Incision underneath the nipple revealed a dilated duct with what appeared to be a papilloma. The papilloma and subareolar tissue were biopsied and submitted for frozen section which was reported as a papilloma without evidence of atypia or malignancy. Thereafter, the breast was infiltrated with a dilute solution of lidocaine with epinephrine. The superior dissection above the nipple line was carried out with a facelift scissors superior to the clavicle and laterally to latissimus dorsi. The breast was then submitted with a short suture superior, long suture lateral. The wound was copiously irrigated with normal saline. Hemostasis maintained by electrocautery. Skin flaps had a good thickness and appeared to be perfused well with no duskiness of the nipple. The procedure was then turned over to Plastic Surgery who was performing a GEOFFREY autologous reconstruction. GREGORIO LUCIANO M.D. [id number]
[2017-01-05] MEDS: HEPARIN NA (PORCINE) 5,000 UNITS/ML 1ML VIAL SQ SCH (08:57)
[2017-01-05] MEDS ORDERED: amLODIPine BESYLATE 10 MG TABLET (FP) PO SCH (10:00)
[2017-01-05] MEDS ORDERED: PT OWN MED DRAWER 7, Y5N ONE (10:26)
[2017-01-05] MEDS: ASPIRIN 325 MG TABLET PO SCH (10:43)
--- NOTE | 2017-01-05 11:39 | DS ---
Physical Examination Vital Signs: Vital Signs Temperature 100.1 F H 01/05/17 06:00 Pulse Rate 116 H 01/05/17 06:00 Respiratory Rate 20 01/05/17 06:00 Blood Pressure 165/72 01/05/17 06:00 O2 Sat by Pulse Oximetry (%) 97 01/04/17 21:00 Constitutional: Yes: No Distress Wound/Incision: Yes: Clean/Dry (Flaps viable w/o signs of infection Small superficial ischemia at nipple and 6:00 IMF.), Well Approximated Labs: CBC, BMP 01/04/17 05:15 01/04/17 05:15 Discharge Summary Reason For Visit: LEFT BREAST CA Current Active Problems Atypical lobular hyperplasia of left breast (Acute) Breast cancer, left (Acute) Intraductal papilloma of right breast (Acute) Procedures: Principal: Left Total MTX with SLNBx and DEIP Condition: Improved - Instructions Disposition: HOME - Home Medications Comprehensive Discharge Medication List: Ambulatory Orders Enalapril Maleate [Vasotec -] 2.5 mg PO DAILY 12/28/16
[2017-01-05 15:32] VITALS: BP 163/93; PULSE 117; TEMP 98.9
--- NOTE | 2017-01-06 17:52 | EKG ---
Test Reason : Blood Pressure : / mmHG Vent. Rate : 102 BPM Atrial Rate : 102 BPM P-R Int : 206 ms QRS Dur : 092 ms QT Int : 324 ms P-R-T Axes : 037 -17 019 degrees QTc Int : 422 ms SINUS TACHYCARDIA MINIMAL VOLTAGE CRITERIA FOR LVH, MAY BE NORMAL VARIANT BORDERLINE ECG WHEN COMPARED WITH ECG OF 18-DEC-2016 10:12, VENT. RATE HAS INCREASED BY 34 BPM Confirmed by WILL ROSS MD ([id number]) on 01/06/2017 5:52:27 PM Referred By: Vernon APRNELL Confirmed By:WILL ROSS MD
== END 2017-01-05 15:45 | disposition home or self-care (01) | DRG 581 ==
LOC: JSAMEDAYSX 01-02 06:11 → JICU 01-02 20:24 → J8W 01-04 22:04
PROVIDERS: ADMIT Surgery Surgical Oncology; ATTEND Plastic Surgery
PROC: 0HR Skin and Breast, Replacement (ICD-10-PCS; 2017-01-02)
PROC: 3E0T3BZ Introduction of Anesthetic Agent into Peripheral Nerves and Plexi, Percutaneous Approach (ICD-10-PCS; 2017-01-02)
PROC: 0HTU0ZZ Resection of Left Breast, Open Approach (ICD-10-PCS; principal; 2017-01-02 08:00)
PROC: 07B60ZX Excision of Left Axillary Lymphatic, Open Approach, Diagnostic (ICD-10-PCS; 2017-01-02 08:00)
PROC: 0HRU077 Replacement of Left Breast using Deep Inferior Epigastric Artery Perforator Flap, Open Approach (ICD-10-PCS; 2017-01-02 08:00)
DX: C50.412 Malignant neoplasm of upper-outer quadrant of left female breast (principal); I10 Essential (primary) hypertension; K21.9 Gastro-esophageal reflux disease without esophagitis
CPT/HCPCS: 36415; 78195-TC; 80053; 85025; 85027; 86850; 86900; 86901; 88304-TC; 88305-TC; 88307-TC; 88331-TC; 88332; 93005; 93010; 94010; 94760; A9541; J1644